=== PATIENT | female | born 1970 | race Caucasian/White ===

== ENCOUNTER 2025-08-16 04:25 | Emergency (ER) | payer OTHER ==
[~2025-08-16] VITALS: Ht 172.7 cm; Wt 68.2 kg
--- NOTE | 2025-08-16 04:51 | Physician Documentation ---
History of Present Illness ~ General Chief Complaint: Flank Pain Stated Complaint: RIB AND BACK PAIN Time Seen by MD: 04:32 Mode of Arrival: POV History of Present Illness Initial Comments Patient presents to the emergency room with left posterior intermittent back pain. Patient states she is having massive spasms for which she has taken ibuprofen Tylenol and Flexeril for that has not helped. Symptoms began five days ago when she noticed some pain in this area. Last night she had a massage on this area from her and she states it felt really nice but short time after that the spasms began. Denies any chest pain or injuries. Denies shortness of breath. States it feels like her muscle that has just squeezing intermittently in the area of concern. Medication Reconciliation Allergies: Coded Allergies: No Known Allergies (Unverified , 08/16/25) Review of Systems ROS All review of systems negative except as per HPI Physical Exam Physical Exam Vital Signs: Temperature: 98.6, Source: Oral, Heart Rate: 98, Respiratory Rate: 18, BP: 158/103, Pulse Oximetry: 98, Weight: 68.180 Oxygen Flow Rate: 0 Physical Exam General: Patient is awake, alert, oriented x4 in mild distress. Occasionally sc reaming secondary to spasm Head: Normocephalic and atraumatic. Eyes: Conjunctival normal. EOMI. PERRL. ENT: Mucous membranes moist. Neck: Supple, trachea is midline. Chest: Clear to auscultation bilaterally without rales, rhonchi, or wheezes. There is no accessory muscle use or retractions. Cardiac: RRR without murmurs, gallops, or rubs. Back: Tenderness to palpation to posterior left mid back. No rash Progress Results/Orders Results/Orders Orders - HEMANT ZALDIVAR MD Magnesium Sulf-Water 2g/50ml (Magnesium (08/16/25 04:50) Completed Orders - HEMANT ZALDIVAR MD Normal Saline 1000ml (0.9% Sodium Chlori (08/16/25 04:50) Potassium Cl Sr Tablet (K-Dur Tablet) (08/16/25 04:46) Midazolam 1 Mg/Ml 2ml Inj. (Versed 1 Mg/ (08/16/25 04:50) Fentanyl/Pf (Fentanyl 0.05 Mg/Ml Syringe (08/16/25 04:50) Medications Received in ER Medications (Trade) Dose Ordered Sig/Melissa Route PRN Reason Start Time Stop Time Status Last Admin Dose Admin Sodium Chloride 1,000 ml @ 1,000 mls/hr ONCE ONCE IV 08/16/25 04:50 08/16/25 05:49 DC 08/16/25 04:59 1,000 MLS/HR Magnesium Sulfate 50 ml @ 25 mls/hr ONCE ONCE IV 08/16/25 04:50 08/16/25 06:49 08/16/25 04:58 25 MLS/HR (K-DUR tablet) 20 meq ONCE STAT PO 08/16/25 04:46 08/16/25 04:48 DC 08/16/25 04:59 20 MEQ (VERSED 1 MG/ML 2 ML inj.) 1 mg ONCE ONCE IV 08/16/25 04:50 08/16/25 04:51 DC 08/16/25 04:59 1 MG (fentaNYL 0.05 MG/ML syringe) 25 mcg ONCE ONCE IV 08/16/25 04:50 08/16/25 04:51 DC 08/16/25 04:58 25 MCG Vital Signs 08/16/25 08/16/25 08/16/25 08/16/25 04:33 04:38 04:59 05:38 Temp 98.6 98.6 Pulse 98 59 Resp 18 18 16 B/P (MAP) 158/103 129/85 (100) Pulse Ox 98 98 O2 Flow Rate 0 0 Medical Decision Making Additional information obtaine: N/A Findings Patient presents to the emergency room for evaluation of left back pain as per HPI. Differentials include but are not limited to spasm, ACS, rib fracture, shingles, pneumothorax. History and physical exam consistent with muscle spasm. She has responded to treatment and he had not feel emergent labs or imaging is necessary. Differential Diagnosis j Departure Disposition: HOME / SELF CARE / HOMELESS Impression: Primary Impression: Muscle spasm Condition: Improved Discharge Instructions: Muscle Cramps and Spasms Referrals: NO PRIMARY CARE PROVIDER (PCP) Prescriptions Lorazepam (Ativan) 1 Mg Tablet 1 TAB PO Q8H for Spasm, #5 TAB 0 Refills Prov: HEMANT ZALDIVAR MD 08/16/25 Signature Scribe Signature: No scribe Attestation: The note accurately reflects work and decisions made by me.Hemant Zaldivar MD 08/16/25 05:54 HEMANT ZALDIVAR MD Aug 16, 2025 04:51
[2025-08-16] MEDS: fentaNYL/PF 50MCG/1 ML 2ML syringe IV ONE (04:58)
[2025-08-16] MEDS: magnesium sulf-water 2g/50mL 50 ML IV ONE (04:58)
[2025-08-16] MEDS: potassium Cl 20 mEq SR tablet PO STA (04:59)
[2025-08-16] MEDS: normal saline 1000ml 1,000 ML IV ONE (04:59)
[2025-08-16] MEDS: midazolam 1 mg/ML 2ml injection IV ONE (04:59)
[2025-08-16] MEDS ORDERED: LORA-269 PO (05:54)
[2025-08-16 06:03] VITALS: BP 125/84; PULSE 66; RESP 16; TEMP 98.6; O2SAT 98
== END 2025-08-16 06:04 | disposition home or self-care (01) ==
LOC: ER 04:26
DX: M62.830 Muscle spasm of back (principal)
CPT/HCPCS: 96365; 96375; 99284; J2250; J3010; J7030